=== PATIENT | female | born 1995 | race Caucasian/White ===

== ENCOUNTER 2023-03-06 15:29 | Inpatient (IN) | payer BC ==
[~2023-03-06] VITALS: Ht 165.1 cm; Wt 97.1 kg
--- NOTE | 2023-03-06 15:36 | NUR ---
PATIENT CAME WITH BODY PAIN.ALERT AND ORIENTED,ATTACHED TO MONITOR,ON ROOM AIR
--- NOTE | 2023-03-06 15:37 | NUR ---
DR ESPINOZA AT BED SIDE
[2023-03-06] MEDS ORDERED: METHOCARBAMOL (500MG) 500 MG TABLET PO ONE (16:00)
[2023-03-06] MEDS ORDERED: IV NS 0.9% 1,000 ML BAG IV ONE ×2 (16:00→18:00)
[2023-03-06] MEDS ORDERED: METHOCARBAMOL (500MG) 500 MG TABLET ONE (16:13)
--- NOTE | 2023-03-06 16:15 | NUR ---
IV INSERTED ON LEFT AC 20G,BLOOD COLLECTED AND SEND TO LAB
[2023-03-06 16:56] LABS: BASOPHILS % (AUTO) 0.2 % (0.0-2.0); HEMATOCRIT 45 % (33-45); HEMOGLOBIN 14.9 g/dL (11.5-14.8); LYMPHOCYTES # (AUTO) 1.4 K/uL (0.8-4.8); LYMPHOCYTES % (AUTO) 12.8 % (20.0-44.0); MEAN CORPUSCULAR HGB CONC 34 g/dl (31.0-36.0); MEAN CORPUSCULAR VOLUME 87 fL (82-100); MONOCYTES # (AUTO) 0.4 K/uL (0.1-1.30); MONOCYTES % (AUTO) 3.2 % (2.0-12.0); NEUTROPHILS # (AUTO) 9.4 K/uL (1.8-8.9); NEUTROPHILS % (AUTO) 83.8 % (43.0-81.0); PLATELET COUNT (AUTO) 454 K/uL (150-450); RED BLOOD CELL COUNT(AUTO) 5.12 MIL/uL (4.0-5.2); WHITE BLOOD COUNT (AUTO) 11.2 K/uL (4.3-11.0)
[2023-03-06 17:02] LABS: CALCIUM, SERUM 8.8 mg/dL (8.5-10.1); CREATININE 0.7 mg/dL (0.6-1.3); POTASSIUM 4.2 mmol/L (3.5-5.1)
[2023-03-06] MEDS ORDERED: CLEANSE PO (17:50)
[2023-03-06] MEDS ORDERED: [UNRECOGNIZED DRUG - OTHER] PO (17:50)
[2023-03-06] MEDS ORDERED: ONDANSETRON HCL/PF 4 MG/2 ML VIAL IVP ONE (18:00)
[2023-03-06] MEDS ORDERED: MORPHINE SULFATE INJ 2 MG/ML DISP.SYRIN IV ONE (18:00)
[2023-03-06] MEDS ORDERED: IV PREMIX D5 1/2NS + KCL 1,000 ML IV ONE (18:00)
[2023-03-06] MEDS ORDERED: ONDANSETRON HCL/PF 4 MG/2 ML VIAL ONE (18:01)
[2023-03-06] MEDS ORDERED: MORPHINE SULFATE INJ 4 MG/ML DISP.SYRIN ONE (18:02)
--- NOTE | 2023-03-06 18:02 | NUR ---
CALLED PHARM FOR KCL IP
--- NOTE | 2023-03-06 18:11 | NUR ---
CALLED [facility], PAGED HAL
--- NOTE | 2023-03-06 18:56 | NUR ---
BED REPORT GIVEN TO [address] AT [id number]
[2023-03-06] MEDS ORDERED: ZOLPIDEM TARTRATE 5 MG TABLET PO PRN (19:00)
[2023-03-06] MEDS ORDERED: MAG HYDROX/AL HYDROX/SIMETH 30 ML UDC PO PRN (19:00)
[2023-03-06] MEDS ORDERED: HYDROCODONE/APAP 5/325MG TABLET PO PRN (19:00)
[2023-03-06] MEDS ORDERED: Z GUARD REMEDY 4 OZ OINT TP PRN (19:00)
[2023-03-06] MEDS ORDERED: MORPHINE SULFATE INJ 2 MG/ML DISP.SYRIN IV PRN (19:00)
[2023-03-06] MEDS ORDERED: ONDANSETRON HCL/PF 4 MG/2 ML VIAL IVP PRN (19:00)
[2023-03-06] MEDS ORDERED: MAGNESIUM HYDROXIDE 30 ML UDC PO PRN (19:00)
[2023-03-06] MEDS ORDERED: ACETAMINOPHEN 325 MG TABLET PO PRN (19:00)
--- NOTE | 2023-03-06 19:14 | NUR ---
PATIENT HAND OVER TO PEBBLES FOR JARAD
--- NOTE | 2023-03-06 19:30 | NUR ---
PT TRANSFERED WITH ACLS PROTOCAL. IN STABLE CONDITION.
[2023-03-06 20:00] VITALS: BP 121/69; TEMP 98.2
--- NOTE | 2023-03-06 20:00 | NUR ---
RN ADMITTING NOTES ADMITTED A 27 Y/O FEMALE WITH CHIEF COMPLAIN OF BODY PAIN, MUSCLE SPAMS ON BILATERAL THIGHS. CAME FROM ER VIA GURNEY TRANSFERRED PATIENT TO BED SAFELY AND SECURED, A/O X 4 , ABLE TO UNDERSTAND ARMENIAN, AND ABLE TO VERBALIZED NEEDS AND CONCERNS. ON ROOM AIR SATURATING WELL, WITH IV ACCESS AT LAC G20 WITH ONGOING 1/2 NS @ 150 ML/HR INFUSING WELL, NO INFILTRATION AND SWELLING NOTED. SKIN ASSESSMENT DONE, NO OPEN WOUNDS NOTED. HISTORY TAKEN AND RECORDED, PATIENT ABLE TO GIVE INFORMATION, WITH COMPLETE COVID VACCINE. PM CARE DONE, PATIENT IS UNABLE TO AMBULATE ON HER OWN, PLACED PATIENT TO PUREWICK CONNECTED TO SUCTION MACHINE, NOTED URINE OUTPOUT,TEA COLORED. NO PAIN OR DISCOMFORT NOTED AT THIS TIME. PATIENT ORIENTED TO UNIT POLICY, ALL ATTENDING PHYSICIANS INFORMED REGARDING ADMISSION. ALL ADMITTING ORDERS CARRIED OUT. KEPT PATIENT WARM AND COMFORTABLE, KEPT BED ON LOW LOCKED POSITION, KEPT SIDERAILS UP X 2 ALL THE TIME, PLACE PATIENT ON BED REST FOR NOW. KEPT CALL LIGHT WITHIN REACH, WILL CONTINUE TO MONITOR.
[2023-03-06] MEDS: IV 1/2NS 1000 ML 1,000 ML IV PRN (23:55)
[2023-03-07] VITALS: BP 121/69; TEMP 98.2; O2SAT 96
[2023-03-07 05:00] VITALS: BP 113/69; TEMP 98.4; O2SAT 97
[2023-03-07] MEDS: IV 1/2NS 1000 ML 1,000 ML IV PRN ×3 (05:29→22:42)
--- NOTE | 2023-03-07 05:30 | NUR ---
RN NOTES: MRSA SWAB DONE AND SENT TO LAB.
[2023-03-07 05:55] LABS: BASOPHILS % (AUTO) 0.3 % (0.0-2.0); EOSINOPHILS % (AUTO) 0.7 % (0.0-6.0); HEMATOCRIT 42 % (33-45); HEMOGLOBIN 13.7 g/dL (11.5-14.8); LYMPHOCYTES # (AUTO) 2.8 K/uL (0.8-4.8); LYMPHOCYTES % (AUTO) 20.8 % (20.0-44.0); MEAN CORPUSCULAR HGB CONC 33 g/dl (31.0-36.0); MEAN CORPUSCULAR VOLUME 90 fL (82-100); MONOCYTES # (AUTO) 0.6 K/uL (0.1-1.30); MONOCYTES % (AUTO) 4.5 % (2.0-12.0); NEUTROPHILS # (AUTO) 9.8 K/uL (1.8-8.9); NEUTROPHILS % (AUTO) 73.7 % (43.0-81.0); PLATELET COUNT (AUTO) 337 K/uL (150-450); RED BLOOD CELL COUNT(AUTO) 4.72 MIL/uL (4.0-5.2); WHITE BLOOD COUNT (AUTO) 13.3 K/uL (4.3-11.0)
--- NOTE | 2023-03-07 06:34 | NUR ---
RN MS CLOSING NOTES PATIENT IS IN BED, A/O X 4 ABLE TO VERBALIZED NEEDS AND CONCERNS, ON ROOM AIR SATURATING WELL NO SOB/ NOTED AT THIS TIME, PATIENT IS ON BED REST FOR NOW, ON REGULAR DIET NO ASPIRATION NOTED, WITH IV ACCESS AT LAC #20G WITH 1/2 NS 1L AT 150ML/HR INFUSING WELL NO INFILTRATION OR SWELLING NOTED AT THIS TIME. PATIENT IS ON PUREWICK CONNECTED TO SUCTION MACHINE NOTED TEA COLORED URINE. NO PAIN OR DISCOMFORT NOTED AT THIS TIME, PM CARE RENDERED, ALL DUE MEDICATIONS GIVEN ORERED, INTAKE AND OUTPUT RECORDED, ALL NEEDS ATTENDED, KEPT BED ON LOWER LOCK POSITION, WITH SIDE RAILS UP X 2 ALL THE TIME, KEPT CALL LIGHT WITHIN REACH, WILL ENDORSED TO AM SHIFT FOR JARAD.
--- NOTE | 2023-03-07 07:30 | NUR ---
RN MS OPENING NOTES RECEIVED PATIENT IN BED AWAKE , A/O X 4 , ON ROOM AIR WITH NO SOB/ NOTED AT THIS TIME, PATIENT IS ON BED REST FOR NOW , IV ACCESS AT LAC #20G WITH 1/2 NS 1L AT 150ML/HR INFUSING WELL . PATIENT IS ON PUREWICK CONNECTED TO SUCTION MACHINE NOTED TEA COLORED URINE. NO PAIN OR DISCOMFORT NOTED AT THIS TIME , SAFETY MEASURES PROVIDED , KEPT BED ON LOWER LOCK POSITION, WITH SIDE RAILS UP X 2 ALL THE TIME, KEPT CALL LIGHT WITHIN REACH, WILL MONITOR FOR ANY CHANGES
[2023-03-07 08:00] VITALS: BP 128/86; TEMP 98.1
[2023-03-07 09:02] LABS: ALBUMIN 3.2 g/dL (3.4-5.0); BILIRUBIN,DIRECT 0.1 mg/dL (0.0-0.2); BILIRUBIN,TOTAL 0.6 mg/dL (0.2-1.0); CALCIUM, SERUM 8.5 mg/dL (8.5-10.1); CREATININE 0.4 mg/dL (0.6-1.3); MAGNESIUM 2.5 mg/dL (1.8-2.4); PHOSPHORUS 2.2 mg/dL (2.5-4.9); POTASSIUM 4.1 mmol/L (3.5-5.1); TOTAL PROTEIN, SERUM 7.1 g/dL (6.4-8.2)
[2023-03-07 12:00] VITALS: BP 126/72; TEMP 98; O2SAT 97
[2023-03-07 12:24] LABS: BILIRUBIN,URINE NEGATIVE (NEGATIVE); COLOR,URINE ORANGE (YELLOW); LEUKOCYTE ESTERASE ,URINE NEGATIVE (NEGATIVE); NITRITE, URINE NEGATIVE (NEGATIVE); PH,URINE 6.5 (5.0-8.0); PROTEIN,URINE 1+ mg/dl (NEGATIVE); UGLUCOSE NEGATIVE (NEGATIVE); UROBILINOGEN,URINE 0.2 EU/dL (0.2)
[2023-03-07 12:59] LABS: BACTERIA,URINE Rare /HPF (None Seen); SQUAMOUS EPITHELIAL CELL,UR Few /HPF (None Seen); WBC,URINE 0-2 /HPF (0-3)
[2023-03-07 16:00] VITALS: BP 135/77; TEMP 98.1; O2SAT 97
[2023-03-07] MEDS ORDERED: K PHOS NEUTRAL 250 MG TABLET PO ONE (16:30)
--- NOTE | 2023-03-07 18:24 | NUR ---
RN MS CLOSING NOTES PATIENT IN BED AWAKE , A/O X 4 , ON ROOM AIR WITH NO SOB OR DISTRESS NOTED , PATIENT IS ON BED REST FOR NOW , IV ACCESS AT LAC #20G WITH 1/2 NS 1L AT 150ML/HR INFUSING WELL . PATIENT IS ON PUREWICK CONNECTED TO SUCTION MACHINE NOTED TEA COLORED URINE. OUTPUT OF 1800 , SEEN BY [facility] PT AND ABLE TO DO EDGE OF THE BED AND STANDING ATTEMPT WITH MAX ASSIST , NO PAIN OR DISCOMFORT NOTED AT THIS TIME ,ALL DUE MEDS GIVEN ORDERED , KEPT DRY AND CLEAN AT ALL TIMES , SAFETY MEASURES PROVIDED , KEPT BED ON LOWER LOCK POSITION, WITH SIDE RAILS UP X 2 ALL THE TIME, KEPT CALL LIGHT WITHIN REACH, WILL ENDORSED TO NEXT SHIFT
--- NOTE | 2023-03-07 19:30 | NUR ---
RN MS OPENING NOTES PATIENT IN BED AWAKE, A/O X 4 , ON ROOM AIR WITH NO SOB OR DISTRESS NOTED , PATIENT IS ON BED REST FOR NOW, IV ACCESS AT LAC #20G WITH 1/2 NS AT 150ML/HR INFUSING WELL . PATIENT IS ON PUREWICK CONNECTED TO SUCTION MACHINE NOTED YELLOW OUTPUT. NO PAIN OR DISCOMFORT NOTED AT THIS TIME. SAFETY MEASURES IMPLEMENTED: BED LOCKED IN THE LOWEST POSITION, WITH SIDE RAILS UP X 2 ALL THE TIME, KEPT CALL LIGHT WITHIN REACH, BED ALARM ON. WILL CONTINUE TO MONITOR
[2023-03-07 20:00] VITALS: BP 116/68; TEMP 98.1; O2SAT 94
[2023-03-08 04:00] VITALS: BP 105/68; TEMP 97.8; O2SAT 100
--- NOTE | 2023-03-08 06:40 | NUR ---
RN MS CLOSING NOTES PATIENT IN BED AWAKE, A/O X 4 , ON ROOM AIR, SATURATION 100%, NO SOB OR DISTRESS NOTED. IV ACCESS AT LAC #20G WITH 1/2 NS AT 150ML/HR INFUSING WELL . PATIENT IS ON PUREWICK CONNECTED TO SUCTION, NOTED YELLOW OUTPUT. NO PAIN OR DISCOMFORT NOTED AT THIS TIME. SAFETY MEASURES IMPLEMENTED: BED LOCKED IN THE LOWEST POSITION, WITH SIDE RAILS UP X 2 ALL THE TIME, KEPT CALL LIGHT WITHIN REACH, BED ALARM ON. WILL ENDORSE TO THE NEXT SHIFT FOR JARAD
[2023-03-08 07:06] LABS: BASOPHILS % (AUTO) 0.4 % (0.0-2.0); EOSINOPHILS % (AUTO) 1.5 % (0.0-6.0); HEMATOCRIT 43 % (33-45); HEMOGLOBIN 13.7 g/dL (11.5-14.8); LYMPHOCYTES # (AUTO) 2.6 K/uL (0.8-4.8); LYMPHOCYTES % (AUTO) 29.1 % (20.0-44.0); MEAN CORPUSCULAR HGB CONC 32 g/dl (31.0-36.0); MEAN CORPUSCULAR VOLUME 88 fL (82-100); MONOCYTES # (AUTO) 0.5 K/uL (0.1-1.30); MONOCYTES % (AUTO) 5.3 % (2.0-12.0); NEUTROPHILS # (AUTO) 5.6 K/uL (1.8-8.9); NEUTROPHILS % (AUTO) 63.7 % (43.0-81.0); PLATELET COUNT (AUTO) 374 K/uL (150-450); RED BLOOD CELL COUNT(AUTO) 4.81 MIL/uL (4.0-5.2); WHITE BLOOD COUNT (AUTO) 8.8 K/uL (4.3-11.0)
--- NOTE | 2023-03-08 07:07 | NUR ---
RN OPENING NOTE PATIENT IN BED AWAKE, A/O X 4 , ON ROOM AIR WITH NO SOB OR DISTRESS NOTED ,IV ACCESS AT LAC #20G WITH 1/2 NS AT 150ML/HR INFUSING WELL . PATIENT IS ON PUREWICK, NO PAIN OR DISCOMFORT NOTED AT THIS TIME. SAFETY MEASURES IMPLEMENTED: BED LOCKED IN THE LOWEST POSITION, CALL LIGHT WITHIN REACH, BED ALARM ON. WILL CONTINUE TO MONITOR
[2023-03-08 07:31] LABS: CALCIUM, SERUM 9.2 mg/dL (8.5-10.1); CREATININE 0.5 mg/dL (0.6-1.3); MAGNESIUM 2.4 mg/dL (1.8-2.4); PHOSPHORUS 3.2 mg/dL (2.5-4.9)
[2023-03-08] MEDS: IV 1/2NS 1000 ML 1,000 ML IV PRN ×3 (07:35→22:34)
[2023-03-08 07:42] LABS: ALBUMIN 3.1 g/dL (3.4-5.0); BILIRUBIN,DIRECT 0.1 mg/dL (0.0-0.2); BILIRUBIN,TOTAL 0.5 mg/dL (0.2-1.0); TOTAL PROTEIN, SERUM 7.5 g/dL (6.4-8.2)
[2023-03-08 12:00] VITALS: BP 123/76; TEMP 97.9; O2SAT 100
--- NOTE | 2023-03-08 19:36 | NUR ---
RN CLOSING NOTE PATIENT IN BED AWAKE, A/O X 4 , ON ROOM AIR WITH NO SOB OR DISTRESS NOTED ,IV ACCESS AT LAC #20G WITH 1/2 NS AT 150ML/HR INFUSING WELL . PATIENT IS ON PUREWICK, NO PAIN OR DISCOMFORT NOTED AT THIS TIME. SAFETY MEASURES IMPLEMENTED: BED LOCKED IN THE LOWEST POSITION, CALL LIGHT WITHIN REACH, BED ALARM ON. WILL ENDORSE TO THE NEXT SHIFT NURSE FOR JARAD.
--- NOTE | 2023-03-08 19:40 | NUR ---
MS RN OPENING NOTES RECEIVED PATIENT IN BED, WATCHING TV. FAMILY AT BEDSIDE. A/O X 4 , ON ROOM AIR, BREATHING EVEN AND UNLABORED, NO SOB OR DISTRESS NOTED. IV ACCESS LAC #20G WITH 1/2 NS AT 150ML/HR INFUSING WELL . PATIENT IS ON PUREWICK DRAINING YELLOW COLORED URINE. NO PAIN OR DISCOMFORT NOTED AT THIS TIME. SAFETY MEASURES IN PLACE WITH BED IN LOWEST LOCKED POSITION. CALL LIGHT AND TRAY WITHIN EASY REACH. WILL CONTINUE TO MONITOR THE PATIENT.
[2023-03-08 22:54] VITALS: BP 121/81; TEMP 97.6; O2SAT 100
[2023-03-09 04:00] VITALS: BP 126/72; TEMP 98.4; O2SAT 95
[2023-03-09] MEDS: IV 1/2NS 1000 ML 1,000 ML IV PRN ×3 (05:37→18:41)
--- NOTE | 2023-03-09 06:39 | NUR ---
MS RN CLOSING NOTES PATIENT IN BED RESTING COMFORTABLY. A/O X 4. ON ROOM AIR, BREATHING EVEN AND UNLABORED, NO SOB OR DISTRESS NOTED. IV ACCESS LAC #20G WITH 1/2 NS AT 150ML/HR INFUSING WELL . PATIENT IS ON PUREWICK DRAINED 3000 CC CLEAR YELLOW COLORED URINE. NO PAIN OR DISCOMFORT NOTED AT THIS TIME. SAFETY MEASURES MAINTAINED DURING SHIFT. WILL ENDORSE TO THE NEXT SHIFT.
--- NOTE | 2023-03-09 07:03 | NUR ---
RN OPENING NOTE PATIENT IN BED AWAKE, A/O X 4 , ON ROOM AIR WITH NO SOB OR DISTRESS NOTED ,IV ACCESS AT LAC #20G WITH 1/2 NS AT 150ML/HR INFUSING WELL . PATIENT IS ON PUREWICK, NO PAIN OR DISCOMFORT NOTED AT THIS TIME. SAFETY MEASURES IMPLEMENTED: BED LOCKED IN THE LOWEST POSITION, CALL LIGHT WITHIN REACH, WILL CONTINUE TO MONITOR
[2023-03-09 07:37] LABS: BASOPHILS % (AUTO) 0.4 % (0.0-2.0); EOSINOPHILS % (AUTO) 1.8 % (0.0-6.0); HEMATOCRIT 41 % (33-45); HEMOGLOBIN 13.5 g/dL (11.5-14.8); LYMPHOCYTES # (AUTO) 1.9 K/uL (0.8-4.8); LYMPHOCYTES % (AUTO) 22.7 % (20.0-44.0); MEAN CORPUSCULAR HGB CONC 33 g/dl (31.0-36.0); MEAN CORPUSCULAR VOLUME 87 fL (82-100); MONOCYTES # (AUTO) 0.4 K/uL (0.1-1.30); MONOCYTES % (AUTO) 4.4 % (2.0-12.0); NEUTROPHILS # (AUTO) 5.8 K/uL (1.8-8.9); NEUTROPHILS % (AUTO) 70.7 % (43.0-81.0); PLATELET COUNT (AUTO) 433 K/uL (150-450); RED BLOOD CELL COUNT(AUTO) 4.64 MIL/uL (4.0-5.2); WHITE BLOOD COUNT (AUTO) 8.2 K/uL (4.3-11.0)
[2023-03-09 07:56] LABS: CREATININE 0.5 mg/dL (0.6-1.3); PHOSPHORUS 4.1 mg/dL (2.5-4.9); POTASSIUM 3.9 mmol/L (3.5-5.1)
[2023-03-09 08:00] VITALS: BP 114/64; TEMP 97.9; O2SAT 96
[2023-03-09 09:23] LABS: ALBUMIN 3.6 g/dL (3.4-5.0); BILIRUBIN,DIRECT 0.1 mg/dL (0.0-0.2); BILIRUBIN,TOTAL 0.4 mg/dL (0.2-1.0)
--- NOTE | 2023-03-09 10:45 | NUR ---
ORDER FROM DR HONG FOR IV FLUID 1/2NS RATE INCREASED FROM 150ML/HR TO 200ML/HR. CK ELEVATED, NO D/C TODAY.
--- NOTE | 2023-03-09 12:40 | NUR ---
GOT A CALL FROM LAB, WITH CRITICAL RESULT OF CK-MB 7.7. DR HONG NOTIFIED, NO NEW ORDER.
[2023-03-09 16:00] VITALS: BP 121/65; TEMP 98.5; O2SAT 98
--- NOTE | 2023-03-09 19:30 | NUR ---
MS VEENA OPENING NOTES RECEIVED PATIENT IN BED, WATCHING TV. FAMILY AT BEDSIDE. A/O X 4 , ON ROOM AIR, BREATHING EVEN AND UNLABORED, NO SOB OR DISTRESS NOTED. IV ACCESS LAC #20G WITH 1/2 NS AT 200ML/HR INFUSING WELL . PATIENT IS ON PUREWICK DRAINING YELLOW COLORED URINE. NO PAIN OR DISCOMFORT NOTED AT THIS TIME. SAFETY MEASURES IN PLACE WITH BED IN LOWEST LOCKED POSITION. CALL LIGHT AND TRAY WITHIN EASY REACH. WILL CONTINUE TO MONITOR THE PATIENT.
[2023-03-09 20:00] VITALS: BP 130/70; TEMP 97.4; O2SAT 98
[2023-03-10] MEDS: IV 1/2NS 1000 ML 1,000 ML IV PRN ×3 (00:38→17:31)
[2023-03-10 04:17] VITALS: BP 109/90; TEMP 97.4; O2SAT 98
--- NOTE | 2023-03-10 06:32 | NUR ---
TRAFFIC REPORTER CLOSING NOTE PATIENT IN BED AWAKE, A/O X 4 , ON ROOM AIR, NO SOB NOTED ,IV ACCESS AT LAC #20G WITH 1/2 NS AT 200ML/HR INFUSING WELL . PATIENT IS ON PUREWICK, AND USING BEDSIDE COMOD WITH ASSISTANCE. SAFETY MEASURES IMPLEMENTED: BED LOCKED IN THE LOWEST POSITION, CALL LIGHT WITHIN REACH, WILL ENDORSE TO THE NEXT SHIFT NURSE FOR JARAD.
[2023-03-10 06:43] LABS: BASOPHILS % (AUTO) 0.4 % (0.0-2.0); EOSINOPHILS % (AUTO) 1.7 % (0.0-6.0); HEMATOCRIT 40 % (33-45); HEMOGLOBIN 13.2 g/dL (11.5-14.8); LYMPHOCYTES % (AUTO) 23.9 % (20.0-44.0); MEAN CORPUSCULAR HGB CONC 33 g/dl (31.0-36.0); MEAN CORPUSCULAR VOLUME 89 fL (82-100); MONOCYTES # (AUTO) 0.5 K/uL (0.1-1.30); MONOCYTES % (AUTO) 5.5 % (2.0-12.0); NEUTROPHILS # (AUTO) 5.6 K/uL (1.8-8.9); NEUTROPHILS % (AUTO) 68.5 % (43.0-81.0); PLATELET COUNT (AUTO) 387 K/uL (150-450); RED BLOOD CELL COUNT(AUTO) 4.55 MIL/uL (4.0-5.2); WHITE BLOOD COUNT (AUTO) 8.2 K/uL (4.3-11.0)
--- NOTE | 2023-03-10 07:05 | NUR ---
RN OPENING NOTE PATIENT IN BED AWAKE, A/O X 4, ON ROOM AIR WITH NO SOB OR DISTRESS NOTED ,IV ACCESS AT LAC #20G WITH 1/2 NS AT 200ML/HR, INFUSING WELL. PATIENT IS ON PUREWICK, NO PAIN OR DISCOMFORT REPORTED AT THIS TIME. SAFETY MEASURES IMPLEMENTED: BED LOCKED IN THE LOWEST POSITION, CALL LIGHT WITHIN REACH, WILL CONTINUE TO MONITOR.
[2023-03-10 07:28] LABS: ALBUMIN 3.2 g/dL (3.4-5.0); BILIRUBIN,DIRECT 0.1 mg/dL (0.0-0.2); BILIRUBIN,TOTAL 0.4 mg/dL (0.2-1.0); CALCIUM, SERUM 9.6 mg/dL (8.5-10.1); CREATININE 0.4 mg/dL (0.6-1.3); POTASSIUM 4.1 mmol/L (3.5-5.1); TOTAL PROTEIN, SERUM 7.2 g/dL (6.4-8.2)
[2023-03-10 08:00] VITALS: BP 112/78; TEMP 98; O2SAT 100
[2023-03-10 16:00] VITALS: BP 122/66; TEMP 97.9; O2SAT 99
--- NOTE | 2023-03-10 19:22 | NUR ---
RN CLOSING NOTE PATIENT IN BED AWAKE, A/O X 4 , ON ROOM AIR, NO SOB NOTED ,IV ACCESS AT LAC #20G WITH 1/2 NS AT 200ML/HR INFUSING WELL. PATIENT IS ON PUREWICK, AND USING BEDSIDE COMOD WITH ASSISTANCE. SAFETY MEASURES IMPLEMENTED: BED LOCKED IN THE LOWEST POSITION, CALL LIGHT WITHIN REACH, WILL ENDORSE TO THE NEXT SHIFT NURSE FOR JARAD.
--- NOTE | 2023-03-10 19:50 | NUR ---
RN OPENING NOTE PATIENT IN BED AWAKE, A/O X 4, ON ROOM AIR WITH NO SOB OR DISTRESS NOTED ,IV ACCESS ON LAC IS DISCONTINUED DUE TO REDNESS ON THE ARM. NEW IV INSERTION STARTED AT THIS TIME. IV SITE IS NOW AT RAC #20G RUNNING 1/2 NS AT 200ML/HR, INFUSING WELL. NO S/S OF INFILTRATION. PATIENT IS ON PUREWICK, NO PAIN OR DISCOMFORT REPORTED AT THIS TIME. SAFETY MEASURES IMPLEMENTED: BED LOCKED IN THE LOWEST POSITION, CALL LIGHT WITHIN REACH, WILL CONTINUE TO MONITOR.
[2023-03-10 20:00] VITALS: BP 118/75; TEMP 98; O2SAT 98
[2023-03-11] MEDS: IV 1/2NS 1000 ML 1,000 ML IV PRN ×2 (02:01→10:37)
[2023-03-11 04:00] VITALS: BP 111/73; TEMP 97.7; O2SAT 98
--- NOTE | 2023-03-11 06:43 | NUR ---
ELECTRIC MOTOR REPAIRING SUPERVISOR CLOSING NOTE PATIENT IN BED SLEEPING, A/O X 4 , ON ROOM AIR, NO SOB NOTED , CURRENT O2 IS 98% IV ACCESS AT RAC #20G WITH 1/2 NS AT 200 ML/HR INFUSING WELL. PATIENT IS ON PUREWICK, AND BEDSIDE COMMODE IS NEXT TO THE PT. ALL DUE MEDS ARE GIVEN ORDERED. SAFETY MEASURES IMPLEMENTED. PT IS KEPT CLEAN AND DRY. BED LOCKED IN THE LOWEST POSITION, CALL LIGHT WITHIN REACH, SIDE RAILS UP X2 WILL ENDORSE CARE TO THE AM SHIFT NURSE .
[2023-03-11 07:27] LABS: BASOPHILS % (AUTO) 0.6 % (0.0-2.0); EOSINOPHILS % (AUTO) 1.9 % (0.0-6.0); HEMATOCRIT 40 % (33-45); HEMOGLOBIN 13.4 g/dL (11.5-14.8); LYMPHOCYTES # (AUTO) 1.8 K/uL (0.8-4.8); LYMPHOCYTES % (AUTO) 22.3 % (20.0-44.0); MEAN CORPUSCULAR HGB CONC 33 g/dl (31.0-36.0); MEAN CORPUSCULAR VOLUME 88 fL (82-100); MONOCYTES # (AUTO) 0.4 K/uL (0.1-1.30); MONOCYTES % (AUTO) 5.6 % (2.0-12.0); NEUTROPHILS # (AUTO) 5.5 K/uL (1.8-8.9); NEUTROPHILS % (AUTO) 69.6 % (43.0-81.0); PLATELET COUNT (AUTO) 418 K/uL (150-450); RED BLOOD CELL COUNT(AUTO) 4.57 MIL/uL (4.0-5.2); WHITE BLOOD COUNT (AUTO) 7.9 K/uL (4.3-11.0)
[2023-03-11 07:38] LABS: ALBUMIN 3.3 g/dL (3.4-5.0); BILIRUBIN,DIRECT 0.1 mg/dL (0.0-0.2); BILIRUBIN,TOTAL 0.6 mg/dL (0.2-1.0); TOTAL PROTEIN, SERUM 7.5 g/dL (6.4-8.2)
[2023-03-11 08:06] LABS: CALCIUM, SERUM 9.7 mg/dL (8.5-10.1); CREATININE 0.5 mg/dL (0.6-1.3); PHOSPHORUS 3.6 mg/dL (2.5-4.9); POTASSIUM 3.9 mmol/L (3.5-5.1)
--- NOTE | 2023-03-11 16:30 | NUR ---
PATIENT DISCHARGED HOME, WITH PRIVATE CAR. SISTER AND BOYFRIEND WITH PATIENT UPON DISCHARGE. ALL DC INSTRUCTION GIVEN PATIENT ON ROOM AIR NO SOB OR DISTRESS NOTED
== END 2023-03-11 16:35 | disposition home or self-care (01) | DRG 558 ==
LOC: ER 15:34 → MEDSG1 18:36
PROVIDERS: ADMIT Student in an Organized Health Care Education/Training Program; ATTEND Student in an Organized Health Care Education/Training Program
DX: M62.82 Rhabdomyolysis (principal); E44.1 Mild protein-calorie malnutrition; E87.1 Hypo-osmolality and hyponatremia; K80.20 Calculus of gallbladder without cholecystitis without obstruction; K76.0 Fatty (change of) liver, not elsewhere classified; E83.39 Other disorders of phosphorus metabolism; E83.41 Hypermagnesemia; E88.09 Other disorders of plasma-protein metabolism, not elsewhere classified; R74.01 Elevation of levels of liver transaminase levels; Z68.35 Body mass index [BMI] 35.0-35.9, adult
CPT/HCPCS: 36415; 76770-TC; 80048-TC; 80076-TC; 81001; 82550-TC; 82553; 83735-TC; 84100-TC; 84300-TC; 84703-TC; 85025-TC; 87081-TC; 97110-TC; 97116-TC; 97530-TC; A4223; G0378; J2270; J2405; J3490; J7030